=== PATIENT | female | born 1995 | race Caucasian/White ===

== ENCOUNTER 2017-08-21 17:56 | Emergency (ER) | payer OTHER ==
[~2017-08-21] VITALS: Ht 170.2 cm; Wt 68.2 kg
[2017-08-21 18:02] VITALS: BP 118/78; TEMP 98.3
[2017-08-21] MEDS ORDERED: RITALIN 20M20 MG/TAB PO (18:05)
[2017-08-21] MEDS ORDERED: TRI-LO-MARZIA1 EACH PO (18:05)
[2017-08-21 19:45] VITALS: PULSE 78
[2017-08-21 20:19] LABS: HIV 1/2 Antibodies Non-Reactive; HIV-1p24 Antigen Non-Reactive
[2017-08-22 13:57] LABS: HEPATITIS B SURFACE ANTIGEN Negative (()); HEPATITIS C VIRUS ANTIBODY Negative (())
== END 2017-08-21 19:45 | disposition home or self-care (01) ==
LOC: COL.ER 17:56
PROVIDERS: Nurse Practitioner
DX: S61.231A Puncture wound without foreign body of left index finger without damage to nail, initial encounter (principal); W46.1XXA Contact with contaminated hypodermic needle, initial encounter; Y92.89 Other specified places as the place of occurrence of the external cause; Y99.0 Civilian activity done for income or pay